=== PATIENT | female | born 1975 | race Caucasian/White ===

== ENCOUNTER 2019-07-22 09:32 | Emergency (ER) | payer BC ==
[~2019-07-22] VITALS: Ht 172.7 cm; Wt 122.5 kg
[2019-07-22 10:21] LABS: URINE BILIRUBIN NEGATIVE (Negative); URINE BLOOD NEGATIVE (Negative); URINE CLARITY CLEAR; URINE COLOR YELLOW; URINE GLUCOSE-RANDOM* 3+ (Negative); URINE KETONES NEGATIVE (Negative); URINE LEUKOCYTES-REFLEX NEGATIVE (Negative); URINE NITRITE-REFLEX NEGATIVE (Negative); URINE PROTEIN (DIPSTICK) NEGATIVE (Negative); URINE UROBILINOGEN 0.2 E.U./dl (0.2-1.0)
[2019-07-22 10:37] LABS: CALCIUM 9.4 mg/dL (8.5-10.1); CREATININE 0.9 mg/dL (0.6-1.0); POTASSIUM 4.4 mmol/L (3.5-5.1)
[2019-07-22 10:43] LABS: ALBUMIN 3.4 g/dL (3.4-5.0); TOTAL BILIRUBIN 0.4 mg/dL (<0.1-1.0); TOTAL PROTEIN 7.5 g/dL (6.4-8.2)
[2019-07-22 11:22] VITALS: BP 110/69
[2019-07-22] MEDS ORDERED: REGLAN 10 MG TA10 MG PO (11:22)
[2019-07-22 11:23] LABS: ABSOLUTE NEUTROPHILS 4.7 thou/uL (1.4-8.2); BASOPHILS 0.5 % (0.0-2.0); EOSINOPHILS 1.3 % (0.0-3.0); HEMATOCRIT 36.3 % (37.0-47.0); HEMOGLOBIN 12.1 gm/dL (12.0-15.0); LYMPHOCYTES 25.4 % (24.0-44.0); MCH 26.5 pg (26.0-34.0); MCHC 33.3 g/dL (28.0-37.0); MCV 79.6 fL (80.0-100.0); MONOCYTES 6.7 % (1.0-8.0); PLATELET COUNT 316 thou/uL (150-400); POLYS 66.1 % (36.0-66.0); RBC 4.56 mil/uL (4.20-5.00); RDW 14.7 % (10.5-14.5); WBC 7.1 thou/uL (4.0-11.0)
[2019-07-22] MEDS ORDERED: GLUCOPHAGE1000 MG PO (11:51)
--- NOTE | 2019-07-23 08:30 | EKG ---
[address] [place] [address] ELECTROCARDIOGRAM REPORT Name: MATIAS QUINTANILLA Room #: DEP HERRICK CAMPUSToriTori#: [id number] Admission: 07/22/19 Attend Phys: Discharge: 07/22/19 Date of : 73 Report #: [id number] THIS REPORT FOR: //name// [facility] ED Test Date: 2019-07-22 Test Time: 09:44:55 Pat Name: MATIAS QUINTANILLA Department: Room: Gender: F Care Worker: DEYSI : 1975 Requested By: Willian Deutsch Order Number: [id number] MD: Shankar Vasquez Measurements Intervals [place] Rate: 86 P: 41 NH: 133 QRS: 51 QRSD: 91 T: 11 QT: 370 QTc: 443 Interpretive Statements Sinus rhythm Borderline T abnormalities, anterior leads No previous ECG available for comparison Electronically Signed On 07-23-2019 8:30:17 CDT by Shankar Vasquez [email or web address] <ELECTRONICALLY SIGNED> By: Shankar Vasquez MD 07/23/19 0830 0944 [id number] MD WILNER Kapoor
== END 2019-07-22 11:22 | disposition home or self-care (01) ==
LOC: ER 09:32
PROVIDERS: Emergency Medicine
DX: G43.909 Migraine, unspecified, not intractable, without status migrainosus (principal); E11.65 Type 2 diabetes mellitus with hyperglycemia; I10 Essential (primary) hypertension; E78.00 Pure hypercholesterolemia, unspecified; Z88.8 Allergy status to other drugs, medicaments and biological substances; Z86.2 Personal history of diseases of the blood and blood-forming organs and certain disorders involving the immune mechanism